=== PATIENT | female | born 1975 | race Caucasian/White ===

== ENCOUNTER 2017-02-02 23:43 | Emergency (ER) | payer BC ==
[2017-02-02 23:54] VITALS: BP 114/60
--- NOTE | 2017-02-03 00:25 | EDM.PDOC ---
ED HPI GENERAL MEDICAL PROBLEM - General Chief Complaint: Lower Extremity Injury/Pain Stated Complaint: LEFT FOOT PAIN Time Seen by Provider: 02/02/17 23:53 Source of Information: Reports: Patient, Family (Mother), RN Notes Reviewed History Limitations: Reports: No Limitations - History of Present Illness INITIAL COMMENTS - FREE TEXT/NARRATIVE: The patient states that she slipped and fell in her kitchen around 22:45 tonight. Her left leg went backwards, and she injured her left ankle. She also complains of some slight discomfort to her left knee. Otherwise, she appears to be uninjured. She is complaining primarily of pain to the lateral aspect of her left ankle. 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 She ordinarily wears a brace, but was not wearing it when she fell tonight. The patient's PCP is Juanita Gan. 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: Reports: Neurological History: Reports: Other (See Below) (Left footdrop) Hematologic History: Reports: Blood Transfusion(s) - Past Surgical History GI Surgical History: Reports: Other (See Below) (Exploratory laparotomy) Female Surgical History: Reports: Section (x 1), Hysterectomy, Tubal Ligation Musculoskeletal Surgical History: Reports: Hip Replacement (bilateral), ORIF ( right ankle) Social & Family History - Family History Family Medical History: Noncontributory Endocrine/Metabolic: Reports: Diabetes, type II Other Endocrine/Metabolic Family History: mother,materal grandfather and paternal grandmother - Tobacco Use Smoking Status *Q: Current Every Day Smoker Years of Tobacco use: 22 Packs/Tins Daily: 0.8 - Caffeine Use Caffeine Use: Reports: Coffee - Alcohol Use Alcohol Use History: Yes Alcohol Use Frequency: Rarely - Recreational Drug Use Recreational Drug Use: No - Living Situation & Occupation Living situation: Reports: , with Family (Daughter) 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) Review of Systems - Review of Systems Review Of Systems: See Below Constitutional: Reports: No Symptoms Eyes: Reports: No Symptoms Ears: Reports: No Symptoms Nose: Reports: No Symptoms Mouth/Throat: Reports: No Symptoms Respiratory: Reports: No Symptoms Cardiovascular: Reports: No Symptoms GI/Abdominal: Reports: No Symptoms Genitourinary: Reports: No Symptoms Musculoskeletal: Reports: No Symptoms Skin: Reports: No Symptoms Neurological: Reports: No Symptoms Psychiatric: Reports: No Symptoms ED EXAM, GENERAL - Physical Exam Exam: See Below Exam Limited By: No Limitations General Appearance: Alert, WD/WN, No Apparent Distress Extremities: Other (Moderate swelling to the lateral aspect of the left ankle, without other visible abnormalities, such as erythema, ecchymosis, or abrasion. There is tenderness to palpation of the lateral ankle, as well as to the anterior syndesmosis. No significant tenderness to the medial ankle or posterior syndesmosis. Pain is not induced with compression of the tibia and fibula. Slight tenderness to palpation of the lateral aspect of the foot. Vascular status of the left lower extremity is intact.) Course - Vital Signs Last Recorded V/S: Last Vital Signs Temp 36.3 C 02/02/17 23:50 Pulse 86 02/02/17 23:50 Resp 16 02/02/17 23:50 BP 114/60 02/02/17 23:50 Pulse Ox 98 02/02/17 23:50 - Orders/Labs/Meds Orders: Active Orders 24 hr Category Date Time Status Ankle Min 3V Lt [CR] Stat Exams 02/03/17 00:13 Taken Acetaminophen/HYDROcodone [Daykin 325-5 MG] Med 02/03/17 00:59 Once 2 tab PO ONETIME ONE DME for Discharge [COMM] Stat Oth 02/03/17 00:58 Ordered - Re-Assessments/Exams Free Text/Narrative Re-Assessment/Exam: 02/03/17 00:59 4 view radiographs of the left ankle appear to have a straight lateral soft tissue swelling, otherwise no bony injuries, such as fracture or dislocation. Formal read per the Radiologist pending. I have ordered an Aircast and 2 tablets of Daykin. 02/03/17 01:07 The patient is requesting crutches. They have been ordered. Departure - Departure Time of Disposition: 01:04 Disposition: Home, Self-Care 01 Condition: Good Clinical Impression: Left ankle sprain - Discharge Information Referrals: Juanita Gan NP [Primary Care Provider] - Forms: ED Department Discharge Additional Instructions: You were seen in the emergency room after slipping and falling, injuring your left ankle earlier tonight. Workup in the ER included x-rays of your left ankle. Your x-rays show no broken bones or dislocations. You have sprained your left ankle. You have been placed into an Aircast. We recommend that you apply this each morning, and remove it at that time. Wear it for 1 week, then begin walking without the Aircast, even though it will likely still be sore. Ice and elevate your left foot when not walking as much as possible for the next 2-3 days. Take [id number] ibuprofen as needed for discomfort. If your ankle still hurts after 2 weeks, please follow-up with the Orthopedic Surgeon Dr. Johns. If any other problems, please do not hesitate to return to the ER. - My Orders Last 24 Hours: My Active Orders 02/03/17 00:13 Ankle Min 3V Lt [CR] Stat 02/03/17 00:58 DME for Discharge [COMM] Stat 02/03/17 00:59 Acetaminophen/HYDROcodone [Daykin 325-5 MG] 2 tab PO ONETIME ONE - Assessment/Plan Last 24 Hours: My Active Orders 02/03/17 00:13 Ankle Min 3V Lt [CR] Stat 02/03/17 00:58 DME for Discharge [COMM] Stat 02/03/17 00:59 Acetaminophen/HYDROcodone [Daykin 325-5 MG] 2 tab PO ONETIME ONE
[2017-02-03] MEDS ORDERED: Acetaminophen/HYDROcodone 325-5 MG Tab PO ONE (00:59)
--- NOTE | 2017-02-04 10:34 | CR ---
Left ankle: Four views of the left ankle were obtained. Comparison: No prior ankle exam. Soft tissue swelling is identified. Ankle mortise is symmetric. No fracture, dislocation or other bony abnormality is seen. Impression: 1. Soft tissue swelling. No bony abnormality is identified on left ankle exam. Diagnostic code #2
== END 2017-02-03 01:18 | disposition home or self-care (01) ==
LOC: JD.ED 23:43
DX: S93.402A Sprain of unspecified ligament of left ankle, initial encounter (principal); F17.210 Nicotine dependence, cigarettes, uncomplicated; Z96.643 Presence of artificial hip joint, bilateral; Z90.710 Acquired absence of both cervix and uterus; Z98.890 Other specified postprocedural states; Z91.048 Other nonmedicinal substance allergy status; W01.0XXA Fall on same level from slipping, tripping and stumbling without subsequent striking against object, initial encounter; Y92.89 Other specified places as the place of occurrence of the external cause
CPT/HCPCS: 73610; 99283; A9270